=== PATIENT | male | born 1960 | race Caucasian/White ===

== ENCOUNTER 2023-12-20 14:33 | Outpatient (CLI) | payer OTHER, SELFPAY ==
--- NOTE | ~2023-12-20 | XR_ITS ---
XR shoulder RT min 2V Ordering provider: FAROOQ Kerr History: . ANTERIOR PAIN X 3-5 YEARS, PT GETS SHOULDER INJECTIONS . Comparison: None. FINDINGS: BONES: No acute fracture or dislocation. Degenerative changes in the area of the greater tuberosity. JOINT SPACES: The acromioclavicular joint shows osteoarthritic changes. The glenohumeral joint is nor mal. SOFT TISSUES: Normal. IMPRESSION: No acute osseous abnormality right shoulder. Reviewed, dictated and finalized at location A. OPERATIONS LEAD
== END 2023-12-20 14:34 | disposition home or self-care (01) ==
PROVIDERS: PCP Internal Medicine; Visit Provider Physician Assistant Surgical
DX: M19.011 Primary osteoarthritis, right shoulder (principal)
CPT/HCPCS: 73030